=== PATIENT | female | born 1995 | race African-American/Black ===

== ENCOUNTER 2017-07-31 11:30 | Emergency (ER) | payer OTHER ==
[~2017-07-31] VITALS: Ht 152.4 cm; Wt 54.4 kg
[~2017-07-31 11:30] MED LIST: MACROBID 100 M100 M1 PO; PHENERGAN 25 MG25 M1 PO; POTASSIUM20 PO; VITAFOL-OB+DHA1 EACH PO
[2017-07-31] MEDS ORDERED: NAPROSYN500 MG PO (12:23)
[2017-07-31] MEDS ORDERED: NORFLEX100 MG PO (12:23)
[2018-01-14] MEDS ORDERED: ELIQUIS5 MG PO (19:39)
== END 2017-07-31 12:38 | disposition home or self-care (01) ==
LOC: ER 11:30
DX: M43.6 Torticollis (principal); Z88.8 Allergy status to other drugs, medicaments and biological substances

== ENCOUNTER 2017-10-18 09:24 | Emergency (ER) | payer OTHER ==
[~2017-10-18] VITALS: Ht 152.4 cm; Wt 54.4 kg
[~2017-10-18 09:24] MED LIST changes: +NAPROSYN500 MG PO; +NORFLEX100 MG PO
[2017-10-18 09:27] VITALS: BP 124/82
[2017-10-18] MEDS ORDERED: MUPIROCIN15 GM TOP (09:39)
[2017-10-18] MEDS ORDERED: HYDROCODONE-AP1 EAC6 PO (09:39)
[2017-10-18] MEDS ORDERED: KEFLEX500 M1 PO (09:39)
== END 2017-10-18 09:55 | disposition home or self-care (01) ==
LOC: ER 09:24
DX: T20.05XA Burn of unspecified degree of scalp [any part], initial encounter (principal); Z88.8 Allergy status to other drugs, medicaments and biological substances; L01.00 Impetigo, unspecified; T31.0 Burns involving less than 10% of body surface; T49.4X1A Poisoning by keratolytics, keratoplastics, and other hair treatment drugs and preparations, accidental (unintentional), initial encounter; Y93.89 Activity, other specified; Y92.89 Other specified places as the place of occurrence of the external cause; Y99.8 Other external cause status

== ENCOUNTER 2017-10-31 14:16 | Emergency (ER) | payer OTHER ==
[~2017-10-31] VITALS: Ht 152.4 cm; Wt 54.4 kg
[~2017-10-31 14:16] MED LIST changes: +HYDROCODONE-AP1 EAC6 PO; +KEFLEX500 M1 PO; +MUPIROCIN15 GM TOP
[2017-10-31 14:58] LABS: URINE BILIRUBIN NEGATIVE (Negative); URINE BLOOD 3+ (Negative); URINE CLARITY CLEAR; URINE COLOR YELLOW; URINE GLUCOSE-RANDOM* NEGATIVE (Negative); URINE KETONES NEGATIVE (Negative); URINE LEUKOCYTES NEGATIVE (Negative); URINE NITRITE NEGATIVE (Negative); URINE PROTEIN (DIPSTICK) TRACE (Negative); URINE UROBILINOGEN 0.2 E.U./dl (0.2-1.0)
[2017-10-31 15:07] LABS: BACTERIA 1-9 Few /HPF (None Seen); CASTS None Seen /LPF (None Seen); CRYSTALS None Seen /LPF (None Seen); SQUAMOUS 4-10 Moderate /LPF (0-3); URINE WBC None Seen /HPF (0-5)
[2017-10-31 15:45] LABS: ABSOLUTE NEUTROPHILS 1.2 thou/uL (1.4-8.2); BASOPHILS 1.1 % (0.0-2.0); HEMATOCRIT 35.9 % (37.0-47.0); HEMOGLOBIN 11.2 gm/dL (12.0-15.0); LYMPHOCYTES 56.4 % (24.0-44.0); MCH 22.1 pg (26.0-34.0); MCHC 31.2 g/dL (28.0-37.0); MCV 70.9 fL (80.0-100.0); MONOCYTES 11.4 % (1.0-8.0); PLATELET COUNT 357 thou/uL (150-400); POLYS 26.1 % (36.0-66.0); RBC 5.07 mil/uL (4.20-5.00); RDW 18.1 % (10.5-14.5); WBC 4.5 thou/uL (4.0-11.0)
[2017-10-31 15:54] LABS: CALCIUM 9.3 mg/dL (8.5-10.1); CREATININE 0.7 mg/dL (0.6-1.0); POTASSIUM 3.1 mmol/L (3.5-5.1)
[2017-10-31 16:00] LABS: ALBUMIN 4.2 g/dL (3.4-5.0); TOTAL BILIRUBIN 0.5 mg/dL (<0.1-1.0); TOTAL PROTEIN 8.5 g/dL (6.4-8.2)
[2017-10-31 16:14] LABS: ANISOCYTOSIS 2+; BURR CELLS OCCASIONAL; MICROCYTES 1+; TARGET CELLS OCCASIONAL
[2017-10-31 17:00] VITALS: BP 126/80
[2017-11-01 14:10] LABS: NEISSERIA GONORRHEA-PCR Negative (Negative)
== END 2017-10-31 17:01 | disposition home or self-care (01) ==
LOC: ER 14:16
PROVIDERS: Physician Assistant
DX: N89.8 Other specified noninflammatory disorders of vagina (principal); E87.6 Hypokalemia; D64.9 Anemia, unspecified

== ENCOUNTER 2018-04-08 15:07 | Emergency (ER) | payer OTHER ==
[~2018-04-08] VITALS: Ht 152.4 cm; Wt 61.2 kg
[~2018-04-08 15:07] MED LIST changes: +ELIQUIS5 MG PO
[2018-04-08 15:47] LABS: HEMATOCRIT 29.4 % (37.0-47.0); HEMOGLOBIN 9.3 gm/dL (12.0-15.0); MCH 20.7 pg (26.0-34.0); MCHC 31.6 g/dL (28.0-37.0); MCV 65.6 fL (80.0-100.0); PLATELET COUNT 297 thou/uL (150-400); RBC 4.48 mil/uL (4.20-5.00); RDW 18.3 % (10.5-14.5); WBC 5.6 thou/uL (4.0-11.0)
[2018-04-08 15:55] LABS: CALCIUM 9.5 mg/dL (8.5-10.1); CREATININE 0.7 mg/dL (0.6-1.0); POTASSIUM 3.4 mmol/L (3.5-5.1)
[2018-04-08 16:02] LABS: ALBUMIN 3.6 g/dL (3.4-5.0); TOTAL BILIRUBIN 0.4 mg/dL (<0.1-1.0); TOTAL PROTEIN 7.9 g/dL (6.4-8.2)
[2018-04-08 16:18] LABS: ANISOCYTOSIS 2+
[2018-04-08 16:19] LABS: HYPOCHROMASIA 1+; MICROCYTES 2+
[2018-04-08 16:53] LABS: URINE BILIRUBIN NEGATIVE (Negative); URINE BLOOD NEGATIVE (Negative); URINE CLARITY CLEAR; URINE COLOR YELLOW; URINE GLUCOSE-RANDOM* NEGATIVE (Negative); URINE KETONES NEGATIVE (Negative); URINE PROTEIN (DIPSTICK) NEGATIVE (Negative)
[2018-04-08 16:54] LABS: URINE LEUKOCYTES-REFLEX 2+ (Negative); URINE NITRITE-REFLEX POSITIVE (Negative)
[2018-04-08] MEDS ORDERED: KEFLEX500 M1 PO (17:00)
[2018-04-08 17:03] LABS: BACTERIA-REFLEX >30 Many /HPF (None Seen); CASTS None Seen /LPF (None Seen); CRYSTALS None Seen /LPF (None Seen); MUCUS >6 Heavy strn/LPF (None Seen); SQUAMOUS 4-10 Moderate /LPF (0-3); URINE RBC 0-2 Rare /HPF (0-2)
[2018-04-08 17:04] LABS: URINE WBC-REFLEX >25 Many /HPF (0-5)
[2018-04-08 17:11] VITALS: BP 110/76
== END 2018-04-08 17:12 | disposition home or self-care (01) ==
LOC: ER 15:07
PROVIDERS: Nurse Practitioner Family
DX: O23.41 Unspecified infection of urinary tract in pregnancy, first trimester (principal); O26.891 Other specified pregnancy related conditions, first trimester; R19.7 Diarrhea, unspecified; R10.2 Pelvic and perineal pain; Z3A.01 Less than 8 weeks gestation of pregnancy

== ENCOUNTER 2018-05-15 10:49 | Emergency (ER) | payer OTHER ==
[~2018-05-15] VITALS: Ht 160 cm; Wt 54.4 kg
[2018-05-15 11:12] LABS: URINE BILIRUBIN NEGATIVE (Negative); URINE BLOOD NEGATIVE (Negative); URINE CLARITY SL CLOUDY; URINE COLOR YELLOW; URINE GLUCOSE-RANDOM* NEGATIVE (Negative); URINE KETONES NEGATIVE (Negative); URINE LEUKOCYTES-REFLEX 2+ (Negative); URINE NITRITE-REFLEX NEGATIVE (Negative); URINE PROTEIN (DIPSTICK) NEGATIVE (Negative); URINE SPECIFIC GRAVITY 1.025 (1.005-1.035); URINE UROBILINOGEN 0.2 E.U./dl (0.2-1.0)
[2018-05-15 11:21] LABS: SQUAMOUS >10 Many /LPF (0-3)
[2018-05-15 11:22] LABS: CASTS None Seen /LPF (None Seen); CRYSTALS None Seen /LPF (None Seen); URINE RBC None Seen /HPF (0-2); URINE WBC-REFLEX 6-15 Few /HPF (0-5)
[2018-05-15 11:24] LABS: BACTERIA-REFLEX 1-9 Few /HPF (None Seen)
[2018-05-15] MEDS ORDERED: KEFLEX500 M1 PO (14:28)
== END 2018-05-15 15:25 | disposition home or self-care (01) ==
LOC: ER 10:49
PROVIDERS: Emergency Medicine
DX: O26.891 Other specified pregnancy related conditions, first trimester (principal); R10.2 Pelvic and perineal pain; R82.71 Bacteriuria; Z3A.13 13 weeks gestation of pregnancy

== ENCOUNTER 2018-08-09 08:49 | Emergency (ER) | payer OTHER ==
[~2018-08-09] VITALS: Ht 152.4 cm; Wt 54.4 kg
[~2018-08-09 08:49] MED LIST changes: +PRENATAL PO
[2018-08-09 09:36] VITALS: BP 116/86
== END 2018-08-09 10:35 | disposition home or self-care (01) ==
LOC: ER 08:49
DX: T78.1XXA Other adverse food reactions, not elsewhere classified, initial encounter (principal); Z88.8 Allergy status to other drugs, medicaments and biological substances

== ENCOUNTER 2019-02-06 17:35 | Emergency (ER) | payer OTHER ==
[~2019-02-06] VITALS: Ht 172.7 cm; Wt 52.6 kg
[2019-02-06 17:36] VITALS: BP 130/87
[2019-02-06] MEDS ORDERED: NORFLEX100 MG PO (18:07)
[2019-02-06] MEDS ORDERED: NAPROSYN500 MG PO (18:07)
== END 2019-02-06 18:10 | disposition home or self-care (01) ==
LOC: ER 17:35
DX: S00.83XA Contusion of other part of head, initial encounter (principal); Z88.8 Allergy status to other drugs, medicaments and biological substances; V49.88XA Car occupant (driver) (passenger) injured in other specified transport accidents, initial encounter; Y93.89 Activity, other specified; Y92.413 State road as the place of occurrence of the external cause; Y99.9 Unspecified external cause status

== ENCOUNTER 2020-12-04 04:00 | Emergency (ER) | payer OTHER ==
[~2020-12-04] VITALS: Ht 152.4 cm; Wt 63.5 kg
[2020-12-04] MEDS ORDERED: ENBRACE HR SOF1 EACH PO (04:07)
[2020-12-04 05:35] VITALS: BP 142/85
== END 2020-12-04 06:20 | disposition home or self-care (01) ==
LOC: ER 04:00
DX: S69.82XA Other specified injuries of left wrist, hand and finger(s), initial encounter (principal); Z88.8 Allergy status to other drugs, medicaments and biological substances; Z79.899 Other long term (current) drug therapy; W23.0XXA Caught, crushed, jammed, or pinched between moving objects, initial encounter; Y93.89 Activity, other specified; Y92.89 Other specified places as the place of occurrence of the external cause; Y99.9 Unspecified external cause status